=== PATIENT | female | born 1975 | race Two or more races ===

== ENCOUNTER → 2025-03-06 | Outpatient (CLI) | payer MEDICAID, SELFPAY ==
--- NOTE | 2025-03-06 | XR_ITS ---
Examination: Lumbar spine, 5 views Technique: Lumbar spine AP, lateral, coned lateral lower lumbar spine, bilateral obliques 5 views Exam date and time: March 06, 2025 1159 hours INDICATIONS: Low back pain beginning one month ago. FINDINGS: Adequate alignment lumbar vertebral bodies No lumbar fracture Moderate lumbar spondylosis No significant lumbar disc narrowing IMPRESSION: Moderate lumbar spondylosis No significant lumbar disc narrowing
== END | disposition home or self-care (01) ==
PROVIDERS: PCP Physician Assistant; Referring Provider Physician Assistant; Visit Provider Physician Assistant
DX: M47.816 Spondylosis without myelopathy or radiculopathy, lumbar region (principal)
CPT/HCPCS: 72110